=== PATIENT | female | born 1960 | race African-American/Black ===

== ENCOUNTER 2017-10-20 12:22 | Emergency (ER) | payer MEDICAID ==
[~2017-10-20] VITALS: Ht 162.6 cm; Wt 84.8 kg
[~2017-10-20 12:22] MED LIST: AMOXICILLIN500 MG ORAL; IBUPROFEN600 MG ORAL; NORCO 5-325 TA1 EACH ORAL; NYSTATIN CREAM15 GM TOPIC; ZOFRAN ODT4 MG ORAL
[2017-10-20 12:41] VITALS: BP 122/67
[2017-10-20] MEDS ORDERED: Acetaminophen 500mg (ES) tab ORAL ONE (13:00)
--- NOTE | 2017-10-20 13:02 | Emergency Room Report ---
History of Present Illness General Chief Complaint: Back Pain-No Injury Source: Patient Present Illness HPI Patient is a 57-year-old female who presents today with left sided back pain. She states she woke up with the pain this morning and it is worse with movement and deep inspiration. She describes the pain as sharp and 8 out of 10 in severity. She took a [place] 9:00 this morning with minimal relief. She denies any chest pain, shortness of breath, nausea, vomiting or associated symptoms. Denies any falls or trauma. Allergies: Coded Allergies: IBUPROFEN (Verified Allergy, Severe, rash, 06/09/12) Patient History Last Menstrual Period: 2011 Reviewed Nursing Documentation: PMH: Agreed; PSxH: Agreed Nursing Documentation-PMH Hx Diabetes: Yes - DM II Review of Systems Musculoskeletal: Reports: back pain All Other Systems: negative except mentioned in HPI Physical Exam Vital Signs Date Time Temp Pulse Resp B/P (MAP) Pulse Ox O2 Delivery O2 Flow Rate FiO2 10/20/17 12:31 97.4 75 18 122/67 97 Room Air 97.3 Sp02 EP Interpretation: reviewed, normal General Appearance: no apparent distress, alert, GCS 15, non-toxic Head: normocephalic, atraumatic Eyes: bilateral eye normal inspection, bilateral eye PERRL ENT: hearing grossly normal, normal pharynx, no angioedema, normal voice Neck: full range of motion, supple/symm/no masses Respiratory: chest non-tender, lungs clear, normal breath sounds, speaking full sentences Cardiovascular #1: regular rate, rhythm, no edema Cardiovascular #2: 2+ carotid (R), 2+ carotid (L), 2+ radial (R), 2+ radial (L) , 2+ dorsalis pedis (R), 2+ dorsalis pedis (L) Gastrointestinal: normal bowel sounds, non tender, soft, non-distended, no guarding, no rebound Rectal: deferred Genitourinary: normal inspection, no CVA tenderness Musculoskeletal: gait/station normal, normal range of motion, non-tender, calf tenderness, other - point tenderness over the latissimus dorsi in the left mid back Neurologic: alert, oriented x3, responsive, motor strength/tone normal, sensory intact, speech normal Psychiatric: judgement/insight normal, memory normal, mood/affect normal, no suicidal/homicidal ideation Reflexes: 3+ bicep (R), 3+ bicep (L), 3+ tricep (R), 3+ tricep (L), 3+ knee (R) , 3+ knee (L) Skin: normal color, no rash, warm/dry, well hydrated Lymphatic: no adenopathy Medical Decision Making PA Attestation My supervising physician Dr. Carmichael Diagnostic Impression: Primary Impression: Muscle spasm ER Course Findings consistent with lumbago. She has point tenderness over the muscular area of the mid back that is worse with movement and deep inspiration. Chest x- ray is ordered, which is within normal limits. Patient's given Tylenol and on reevaluation at 1435, patient states pain is improving with medication. Patient has no other tenderness to palpation over the back or abdomen. Further setting is considered but I indicated at this time. Low index of suspicion for ACS, AAA or other pathology. Patient understands plan and is agreeable to follow up with PCP as needed for reevaluation. Given return precautions. Chest X-Ray Diagnostic Results Chest X-Ray Diagnostic Results : Chest X-Ray Ordered: Yes # of Views/Limited/Complete: 1 View Indication: Other - back pain EP Interpretation: Yes PA Xray: Interpretation reviewed, by supervising MD, and agrees with findings. Interpretation: no consolidation, no effusion, no pneumothorax Electronically Signed by: leslie arciniega PA-C Last Vital Signs Date Time Temp Pulse Resp B/P (MAP) Pulse Ox O2 Delivery O2 Flow Rate FiO2 10/20/17 12:31 97.4 75 18 122/67 97 Room Air 97.3 Status: improved Disposition: HOME, SELF-CARE Condition: Stable Patient Instructions: Back Pain, Adult Leslie Arciniega Oct 20, 2017 13:02
[2017-10-20 14:55] VITALS: BP 138/77
--- NOTE | 2017-10-20 16:47 | Diagnostic Imaging Report ---
Indication: Chest pain Technique: One view of the chest Comparison: 06/09/2012 Findings: Inspiration is suboptimal. Lungs and pleural spaces are clear. The heart size is normal. No significant interim change Impression: No acute process
== END 2017-10-20 14:55 | disposition home or self-care (01) ==
LOC: EMR 14:25
DX: M62.838 Other muscle spasm (principal); M54.9 Dorsalgia, unspecified; E11.9 Type 2 diabetes mellitus without complications; Z88.6 Allergy status to analgesic agent
CPT/HCPCS: 71045; 99283

== ENCOUNTER 2019-10-22 18:36 | Emergency (ER) | payer MEDICAID ==
[2019-10-22] MEDS ORDERED: Lidocaine 2% Visc 15ml soln ORAL ONE (19:15)
[2019-10-22] MEDS ORDERED: Mylanta II UD 30ml ORAL ONE (19:15)
[2019-10-22] MEDS ORDERED: FAMOTIDINE20 MG ORAL (20:33)
== END 2019-10-22 20:52 | disposition home or self-care (01) ==
DX: R10.13 Epigastric pain (principal); Z88.6 Allergy status to analgesic agent; E11.9 Type 2 diabetes mellitus without complications; Z79.84 Long term (current) use of oral hypoglycemic drugs
CPT/HCPCS: 36415; 80053; 81003; 82150; 83690; 85025; Z7502

== ENCOUNTER 2019-11-17 13:24 | Emergency (ER) | payer MEDICAID ==
[~2019-11-17] VITALS: Ht 162.6 cm; Wt 81.6 kg
[~2019-11-17 13:24] MED LIST changes: +FAMOTIDINE20 MG ORAL
[2019-11-17] MEDS ORDERED: Lidocaine 2% Visc 15ml soln ORAL ONE (14:45)
[2019-11-17] MEDS ORDERED: Mylanta II UD 30ml ORAL ONE (14:45)
[2019-11-17] MEDS ORDERED: Dicyclomine HCl 10mg/5ml oral soln ORAL ONE (14:45)
--- NOTE | 2019-11-17 14:47 | Emergency Room Report ---
History of Present Illness General Chief Complaint: Abdominal Pain Source: Patient Present Illness HPI Disclaimer: Please note that this report is being documented using [employer] technology. This can lead to erroneous entry secondary to incorrect interpretation by the dictating instrument. HPI: 59-year-old female presents for evaluation of abdominal cramping. Symptoms began last night after eating a piece of chicken. She states she was awake all night with epigastric and upper chest burning sensation. She has a history of GERD and is taking her omeprazole though symptoms remain poorly controlled. This morning she states her upper abdominal cramping was more severe than usual and came in for evaluation. She denies any vomiting, nausea, diarrhea, lower abdominal pain or cramping, dysuria, hematuria, melena, hematochezia. Denies chest pain or shortness of breath but did feel somewhat lightheaded this morning when getting out of bed. The symptoms have now resolved. Her abdominal cramping and lightheadedness have resolved. She denies ever having cough, shortness of breath, palpitations or chest pain. She is appointment to follow-up with gastroenterology for EGD, H. pylori breath test and abdominal ultrasound. PMH: GERD PSH: Denies Allergies: NSAIDs Social Hx: Denies alcohol, tobacco or drug use Allergies: Coded Allergies: IBUPROFEN (Verified Allergy, Severe, rash, 06/09/12) COVID-19 Screening Contact w/high risk pt: No Experienced COVID-19 symptoms?: No COVID-19 Testing performed [employer]: Yes - 10/21/19 COVID-19 Screening: Negative COVID-19 COVID-19 Testing Source: oropharynx Patient History Now: No Nursing Documentation-PMH Past Medical History: No History, Except For Hx Diabetes: Yes - DM II Review of Systems All Other Systems: negative except mentioned in HPI Physical Exam Vital Signs Date Time Temp Pulse Resp B/P (MAP) Pulse Ox O2 Delivery O2 Flow Rate FiO2 11/17/19 13:55 98.6 76 20 115/76 (89) 96 Room Air General: Awake and alert, no acute distress HEENT: NC/AT. EOMI. Cardiovascular: RRR. S1 and S2 normal. No murmur appreciated Resp: Normal work of breathing. No cough, wheezing or crackles appreciated Abdomen: Abdomen is soft, nondistended. Obese abdomen. Nontender, negative Bland's, negative rebound, no guarding, no masses palpable. Skin: Intact. No abrasions, laceration or rash over the exposed skin MSK: Normal tone and bulk. Moving all extremities. No obvious deformity. Neuro: Awake and alert. Mentating appropriately. Medical Decision Making Diagnostic Impression: Primary Impression: GERD (gastroesophageal reflux disease) Additional Impression: abdominal pain ER Course Is a 59-year-old female presenting for evaluation of abdominal cramping and lightheadedness now resolved. Differential includes was not limited to GERD, peptic ulcer, Landeros's esophagus, esophagitis, pancreatitis, cholecystitis, electrolyte abnormality, dehydration. No vomiting or diarrhea been reported. The patient arrives in stable condition with no acute complaints and a benign abdominal exam. Labs were obtained and returned within normal limits. Patient remained stable and feels better after receiving Zofran, GI cocktail and IV fluids. She has an appointment to see a alumni relations manager for EGD and H. pylori breath testing. The patient system would be consistent with ulcer and should be investigated by gastroenterology. Do not believe she requires emergent imaging today as her abdomen is soft and she has no symptoms any longer. Will refer to GI but instructed to return with new or worsening symptoms. She understands and agrees with the treatment plan. Laboratory Tests Test 11/17/19 15:48 White Blood Count 11.9 K/UL (4.8-10.8) H Red Blood Count 4.10 M/UL (4.20-5.40) L Hemoglobin 12.2 G/DL (12.0-16.0) Hematocrit 37.2 % (37.0-47.0) Mean Corpuscular Volume 91 FL (80-99) Mean Corpuscular Hemoglobin 29.8 PG (27.0-31.0) Mean Corpuscular Hemoglobin Concent 32.8 G/DL (32.0-36.0) Red Cell Distribution Width 13.0 % (11.6-14.8) Platelet Count 202 K/UL (150-450) Mean Platelet Volume 9.2 FL (6.5-10.1) Neutrophils (%) (Auto) 68.9 % (45.0-75.0) Lymphocytes (%) (Auto) 20.8 % (20.0-45.0) Monocytes (%) (Auto) 6.1 % (1.0-10.0) Eosinophils (%) (Auto) 3.3 % (0.0-3.0) H Basophils (%) (Auto) 0.9 % (0.0-2.0) Urine Color Pale yellow Urine Appearance Clear Urine pH 5 (4.5-8.0) Urine Specific [place] 1.015 (1.005-1.035) Urine Protein Negative (NEGATIVE) Urine Glucose (UA) Negative (NEGATIVE) Urine Ketones Negative (NEGATIVE) Urine Blood Negative (NEGATIVE) Urine Nitrite Negative (NEGATIVE) Urine Bilirubin Negative (NEGATIVE) Urine Urobilinogen Normal MG/DL (0.0-1.0) Urine Leukocyte Esterase Negative (NEGATIVE) Sodium Level 144 MMOL/L (136-145) Potassium Level 4.2 MMOL/L (3.5-5.1) Chloride Level 107 MMOL/L (98-107) Carbon Dioxide Level 30 MMOL/L (21-32) Anion Gap 8 mmol/L (5-15) Blood Urea Nitrogen 13 mg/dL (7-18) Creatinine 0.9 MG/DL (0.55-1.30) Estimated Glomerular Filtration Rate > 60 mL/min (>60) Glucose Level 173 MG/DL (74-106) H Calcium Level 9.8 MG/DL (8.5-10.1) Total Bilirubin 0.3 MG/DL (0.2-1.0) Aspartate Amino Transferase (AST) 14 U/L (15-37) L Alanine Aminotransferase (ALT) 25 U/L (12-78) Alkaline Phosphatase 82 U/L (46-116) Troponin I 0.000 ng/mL (0.000-0.056) Total Protein 7.9 G/DL (6.4-8.2) Albumin 3.9 G/DL (3.4-5.0) Globulin 4.0 g/dL Albumin/Globulin Ratio 1.0 (1.0-2.7) Lipase 285 U/L (73-393) EKG Diagnostic Results EKG Time: 14:51 Rate: normal Rhythm: NSR ST Segments: no acute changes Other Impression Sinus rhythm, normal axis, increased MO interval consistent with first-degree AV block, no ST segment abnormalities. Rhythm Strip Diag. Results Rhythm Strip Time: 14:51 EP Interpretation: yes Rate: 70s Rhythm: NSR, no PVC's, no ectopy Last Vital Signs Date Time Temp Pulse Resp B/P (MAP) Pulse Ox O2 Delivery O2 Flow Rate FiO2 11/17/19 13:55 98.6 76 20 115/76 (89) 96 Room Air Disposition: HOME, SELF-CARE Condition: Stable Referrals: NON PHYSICIAN (PCP) Patrick Tan MD Nov 17, 2019 14:47
--- NOTE | 2019-11-17 15:10 | NUR ---
ED Nurse Note: Pt came to ED for lower abdominal pain 10/14 since this morning. She is also feeling slightly dizzy. Pt states she came to ED 2 weeks ago for same issue. Pt denies NVD. She is set up on monitor. pt is alert and ox4, ambulatory.
[2019-11-17 15:20] VITALS: BP 119/78
[2019-11-17 16:20] LABS: BASOPHILS % (AUTO) 0.9 % (0.0-2.0); EOSINOPHILS % (AUTO) 3.3 % (0.0-3.0); HEMATOCRIT 37.2 % (37.0-47.0); HEMOGLOBIN 12.2 G/DL (12.0-16.0); LYMPHOCYTES % (AUTO) 20.8 % (20.0-45.0); MEAN CORPUSCULAR VOLUME 91 FL (80-99); MONOCYTES % (AUTO) 6.1 % (1.0-10.0); NEUTROPHILS % (AUTO) 68.9 % (45.0-75.0); PLATELET COUNT 202 K/UL (150-450); WHITE BLOOD COUNT 11.9 K/UL (4.8-10.8)
[2019-11-17 16:22] LABS: APPEARANCE,URINE CLEAR; BILIRUBIN, URINE NEGATIVE (NEGATIVE); COLOR,URINE PALE YELLOW; GLUCOSE, URINE (UA) NEGATIVE (NEGATIVE); KETONES,URINE NEGATIVE (NEGATIVE); LEUKOCYTE ESTERASE ,URINE NEGATIVE (NEGATIVE); NITRITE,URINE NEGATIVE (NEGATIVE); PH,URINE 5 (4.5-8.0); PROTEIN,URINE NEGATIVE (NEGATIVE); UROBILINOGEN,URINE NORMAL MG/DL (0.0-1.0)
[2019-11-17 16:24] LABS: ANION GAP 8 mmol/L (5-15); BLOOD UREA NITROGEN 13 mg/dL (7-18); CALCIUM 9.8 MG/DL (8.5-10.1); CARBON DIOXIDE 30 MMOL/L (21-32); CHLORIDE 107 MMOL/L (98-107); CREATININE 0.9 MG/DL (0.55-1.30); POTASSIUM 4.2 MMOL/L (3.5-5.1); SODIUM 144 MMOL/L (136-145)
[2019-11-17 16:29] LABS: ALANINE AMINOTRANSFERASE 25 U/L (12-78); ALBUMIN 3.9 G/DL (3.4-5.0); ALKALINE PHOSPHATASE 82 U/L (46-116); ASPARTATE AMINO TRANSFERASE 14 U/L (15-37); BILIRUBIN,TOTAL 0.3 MG/DL (0.2-1.0)
[2019-11-17 16:52] VITALS: BP 120/75
[2019-11-17 16:54] VITALS: BP 120/75
--- NOTE | 2019-11-17 16:54 | NUR ---
ER DISCHARGE NOTE: Patient is cleared to be discharged per ERMD, pt is aox4, on room air, with stable vital signs. pt was given dc and prescription instructions, pt was able to verbalize understanding, pt id band and iv site removed without complications. pt is able to ambulate with steady gait. pt took all belongings.
== END 2019-11-17 17:08 | disposition home or self-care (01) ==
LOC: EMR 14:22
DX: K21.9 Gastro-esophageal reflux disease without esophagitis (principal); R10.9 Unspecified abdominal pain; R42 Dizziness and giddiness; E11.9 Type 2 diabetes mellitus without complications; Z88.6 Allergy status to analgesic agent; E66.9 Obesity, unspecified; I44.0 Atrioventricular block, first degree
CPT/HCPCS: 36415; 80053; 81003; 83690; 84484; 85025; 93005; 96361; 96374; J2405; J7030; Z7502; 99284